=== PATIENT | female | born 1985 ===

== ENCOUNTER 2018-06-09 03:25 | Inpatient (IN) | payer BC ==
[~2018-06-09] VITALS: Ht 162.6 cm; Wt 87.7 kg
[2018-06-09] MEDS ORDERED: LABE20TAB PO (04:06)
[2018-06-09 04:07] VITALS: BP 129/84
[2018-06-09] MEDS ORDERED: ASPI81TA85 PO (04:12)
[2018-06-09] MEDS ORDERED: PRENTAB9 PO (04:12)
[2018-06-09 06:48] VITALS: BP 117/64
[2018-06-09] MEDS ORDERED: miSOPROStol 50 MCG 1/2 TAB (S0191) PO ONE (09:15)
[2018-06-09] MEDS ORDERED: VANCOMYCIN HCL 1,000 MG, VIAL MATE ADAPTER 1 EACH in D5W 250 ML IV SCH (09:30)
--- NOTE | 2018-06-09 11:26 | HPEPDOC ---
Obstetrical History & Physical General Date of Admission Jun 09, 2018 at 09:10 Primary Care Physician: MANPREET HAGEN CNM History of Present Illness Patient is a 33 y/o female with a MARCELINO of 07/08/18 measured by LMP who was transferred from [facility] on 06/08 at 35 weeks and 4 days with ruptured membranes. Patient states that she had a kerr of clear fluid from the vagina at 6:00 pm on 06/08, without contractions. She had a positive Amniosure and an ultrasound showing no identifiable amniotic fluid. This has been complicated by chronic hypertension, well controlled with labetalol 200 mg twice/day, and gestational diabetes well controlled with diet. Patient reports active baby movement and occasional contractions, and denies bleeding. She is GBS status unknown, not checked prior to administration of Vancomycin. Also taking Aspirin for history of pre-eclampsia. Chief Complaint: Rupture of membranes (6 pm 06/08/18) Information Provided By: Patient Age: 33 : 3 Term: 1 Pre-term: 0 Abortions: 1 Livin Care Care: Good Care Number of Visits: 8 Dating Final EDC: Jul 08, 2018 Final EDC by: LMP LMP: October 02, 2017 EGA at Admission: 35.4 Antepartum Course Diagnos(e)s Chronic HTN, PPROM, gestational diabetes, hx of pre-eclampsia Height (inches): 63.5 Pre- weight (lbs.): 177.8 Admission Weight (lbs.): 193.75 Change in Weight (lbs.): 16 Past Medical History Past Obstetrical History #1: Past Obstetrical History: Primgravida Date of Delivery: Aug 24, 2013 Gestation: 39 Type of Delivery: Spontaneous Vaginal Del. 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 Surgical History: Dilatation and Curettage (03/21/17), Other (Stomach malrotation surgery at 6 weeks old) Family History Significant Family History: Diabetes (Mother), Hypertension, Hyperlipidemia Social History Marital Status: Single Family situation: Spouse/partner home Psychosocial History: No pertinent psych hx * Smoker: non-smoker Alcohol: rarely Drugs: denies Imunizations Tdap status: current Influenza Status: current Allergies Coded Allergies: Penicillins (Verified Allergy, Unknown, 06/09/18) Sulfa Antibiotics (Verified Allergy, Unknown, 06/09/18) Trimethoprim (Verified Allergy, Unknown, 06/09/18) Medications Scheduled Aspirin (Aspir-81) 81 Mg Tab, 1 TAB PO DAILY for pain Labetalol HCl (Labetalol HCl) 200 Mg Tab, 200 MG PO BID Multivitamins/ ( 27-0.8 mg) 1 Tab Tab, 1 TAB PO DAILY Physical Examination Physical Examination GENERAL: Alert and oriented times three. BREAST: . ABDOMEN: Gravid and non-tender to touch. FETUS: Is vertex (VTX) by sterile vaginal examination (SVE), fetus is vertex (VTX) by Maximino. HEART RATE: Regular rate and rhythm. LUNGS: Clear to auscultation (CTA). EXTREMITIES: No edema. Deep tendon reflexes (DTRs) + [2]. Vital Signs/I&O Vital Signs Date Time Temp Pulse Resp B/P (MAP) Pulse Ox O2 Delivery O2 Flow Rate FiO2 06/09/18 06:48 65 16 117/64 (81) 06/09/18 04:07 97.7 Laboratory Data 24H LABS Laboratory Tests 2 06/09/18 07:48: Bedside Glucose (Misc Panel) 113H Pertinent Laboratoy Data Blood Type: A+ RBC Antibody Screen: Negative HIV: Negative Hepatitis B: Negative Rapid Plasma Reagin: Nonreactive Rubella: Immune Varicella: Immune Chlamydia/Gonorrhea: Negative Group B Streptococcus: Unknown Quad Screen Test: Negative Glucose Tolerance Test: 187 Anatomy Ultrasound Normal Anatomy: Yes Placenta Previa: No Other Ultrasounds 05/15/18 SLF/VX/324/1988g LONNY 12.8 Steroid Therapy Steroid Therapy: Yes Date #1: Jun 08, 2018 (2145) Reason PPROM Vaginal Examination Dilation: 2cm Effacement: 70% Station: -2 Cervical Consistency: Soft Cervical Position: Anterior Presentation: Cephalic presentation Position: Vertex (occiput) Assessment Heart Rate (FHR): 135 Variability: Moderate Accelerations: Positive Decelerations: None Tocometer Contractions: Yes Frequency: irregular Duration: other (60-120) Multi-drug resistant Organism: No history of MDRO Assessment/Plan Assessment IUP at 35.5 weeks PPROM A1GDM Chronic HTN controlled with labetalol GBS unknown Plan Admit to labor and delivery [employer] External and consent Diet: regular Group B Streptococcus (GBS) unknown Treated with Vancomycin Labs and intravenous (IV) per unit protocol Counseled on Pitocin and induction of labor (IOL) Anticipate normal spontaneous delivery () C-S as appropriate JESSICA OCAMPO S-III Jun 09, 2018 10:58
[2018-06-09 13:29] LABS: HEMATOCRIT 35.7 % (36.0-47.0); HEMOGLOBIN 11.9 g/dl (12.0-15.5); MEAN CORPUSCULAR HEMOGLOBIN 28.7 pg (27.0-33.0); MEAN CORPUSCULAR HGB CONC 33.3 g/dl (32.0-36.5); MEAN CORPUSCULAR VOLUME 86.2 fl (80.0-96.0); PLATELET COUNT, AUTOMATED 233 10^3/uL (150-450); RED BLOOD COUNT 4.14 10^6/uL (4.00-5.40); WHITE BLOOD COUNT 9.1 10^3/uL (4.0-10.0)
[2018-06-09] MEDS ORDERED: LR 1,000 ML IV SCH (13:45)
[2018-06-09] MEDS ORDERED: OXYTOCIN DRIP 30 UNITS in APPROPRIATE DILUENT 1 EA IV SCH (13:45)
[2018-06-09] MEDS ORDERED: OXYTOCIN 30 UNITS IN 0.9% NaCl 500ML IV BAG (J2590) As Ordered ONE (13:48)
[2018-06-09] MEDS ORDERED: FENTANYL 2MCG/ML ROPIVACAINE 0.2% IN 0.9% NACL 100ML IVBAG As Ordered ONE (16:22)
--- NOTE | 2018-06-09 16:31 | IPNPDOC ---
Text Note Date of Service The patient was seen on 06/09/18. NOTE Subjective: Entered room to check patient for cervical progression, patient c omplaining of lower back pain with contractions. Desires epidural anesthesia moving forward prior to her next cervical check. Objective: FHR in 130's with moderate variability and no decelerations with contractions every 1-3 minutes apart. Category 1 FHR tracing. Mothers vital signs: HR:57, BP:178/82 Assessment/plan 33 y/o female at 35-6/7 with PPROM here for induction of labor. - Call anesthesia for epidural placement - Cervical check - Continue with FHR monitoring. - Continue monitoring BP, elevation is likely secondary to pain. - Continued anticipation of normal spontaneous vaginal delivery Update: baby progressed to full cervical dilation and was ultimately delivered prior to epidural. Provider was at bedside providing labor support throughout this time. VS,Fishbone, I+O VS, Fishbone, I+O Laboratory Tests 06/09/18 13:10 Red Blood Count 4.14, Mean Corpuscular Volume 86.2, Mean Corpuscular Hemoglobin 28.7, Mean Corpuscular Hemoglobin Concent 33.3, Red Cell Distribution Width 13.2 Vital Signs Date Time Temp Pulse Resp B/P (MAP) Pulse Ox O2 Delivery O2 Flow Rate FiO2 06/09/18 06:48 65 16 117/64 (81) 06/09/18 04:07 97.7 GME ATTESTATION GME ATTESTATION My faculty preceptor for this patient encounter was physically present during the encounter and was fully available. All aspects of the patient interview, examination, medical decision making process, and medical care plan development were reviewed and approved by the faculty preceptor. The faculty preceptor is aware and concurs with the plan as stated in the body of this note and will attest to such by his/her cosignature. BLAIR COTTER DO Jun 09, 2018 16:31
--- NOTE | 2018-06-09 17:19 | DNPDOC ---
[facility] Delivery Note Delivery Note DATE OF DELIVERY: 06/09/2018 PREDELIVERY DIAGNOSIS: 35 weeks, 6 days gestation. POSTDELIVERY DIAGNOSIS: Delivered PROCEDURE: Spontaneous vaginal delivery PROVIDER: Blair Deal DO PGY-I TOOL MAKER: Danielle Collins CNM ANESTHESIA: none. ESTIMATED BLOOD LOSS: 200 mL. FINDINGS: Male infant weighing 5 pounds 7 ounces or 2490 grams, scores 7 and 9. DELIVERY SUMMARY: After a short second stage, the patient spontaneously delivered a 5 pound 7 ounce male , weighing 2490 grams at 1637 hours. The infant delivered OA--> Right occipital transverse, and there was one nuchal times one. The shoulders delivered with ease, followed by the corpus. The cried spontaneously and was handed to the mother. scores were 7 and 9. The cord was doubly clamped and cut by the father of the baby. The placenta was delivered spontaneously at 1645 hours and appeared to be intact. The patient received 10 units of IM pitocin in Right thigh immediately after delivery of the placenta. Patient had 1st degree laceration at the base of the perineum that did not require repair. Sponge counts were correct. The parents have not named their baby yet. GME ATTESTATION GME ATTESTATION My faculty preceptor for this patient encounter was physically present during the encounter and was fully available. All aspects of the patient interview, examination, medical decision making process, and medical care plan development were reviewed and approved by the faculty preceptor. The faculty preceptor is aware and concurs with the plan as stated in the body of this note and will attest to such by his/her cosignature. BLAIR DEAL DO Jun 09, 2018 17:19
[2018-06-09] MEDS ORDERED: FENTANYL/ROPIVACAINE/NACL BAG 100 ML EPIDURAL SCH (18:00)
[2018-06-09] MEDS ORDERED: REFRIGERATOR IV KEYS XX PRN (18:00)
[2018-06-09] MEDS ORDERED: METHYLERGONOVINE MALEATE 0.2 MG TAB PO PRN (19:00)
[2018-06-09] MEDS ORDERED: RHOGAM 300 MCG (1500 IU) INJ (J2790) IM SCH (19:00)
[2018-06-09] MEDS ORDERED: OXYTOCIN INJ 10 UNITS/ML VIAL (J2590) IM ONE (19:00)
[2018-06-09] MEDS ORDERED: DIBUCAINE 1% OINTMENT 30GM TOP PRN (19:00)
[2018-06-09] MEDS ORDERED: MEASLES,MUMPS,RUBELLA VACCINE INJ (MMR-II) (90707) SC SCH (19:00)
[2018-06-09] MEDS ORDERED: ANUSOL HC CREAM 30GM TOP PRN (19:00)
[2018-06-09] MEDS: ACETAMINOPHEN 500 MG TAB PO PRN (21:28)
[2018-06-09 22:00] VITALS: BP 116/65
[2018-06-09] MEDS ORDERED: IBUPROFEN 800 MG TAB PO PRN (23:30)
[2018-06-10] MEDS: PRENATAL VITAMINS CHEWABLE TABLET PO SCH (07:50)
[2018-06-10] MEDS: ACETAMINOPHEN 500 MG TAB PO PRN (07:50)
[2018-06-10] MEDS: DOCUSATE SODIUM 100 MG CAP PO PRN (07:50)
[2018-06-10 10:00] VITALS: BP 127/78
[2018-06-10 14:00] VITALS: BP 135/70
[2018-06-10 18:34] VITALS: BP 117/70
[2018-06-10 22:00] VITALS: BP 123/58
[2018-06-11 02:00] VITALS: BP 117/72
--- NOTE | 2018-06-11 06:05 | NUR ---
Day 2 Status post , uncomplicated Subjective Pain is well controlled. Lochia decreasing and minimal. Voiding spontaneously. Tolerating a regular diet. Ambulating without any assistance. Denies any subjective fever/chills/nausea/vomiting/headache/visual changes/shortness of breath/chest pain. Objective Vitals: Normotensive, normal heart rate, afebrile, adequate urine output. Heart: regular, rate, and rhythm. no murmurs/gallops/rubs Lungs: clear to auscultation bilaterally, no wheezes/crackles/rales/ronchi Abd: soft, nontender, nondistended, uterine fundus is 2cm below umbilicus and firm Ext: no significant edema, nontender, negative Sarah Beth's bilaterally. Assessment/Plan: day 2. Recovering well. Hemodynamically stable, afebrile, good pain control. -Routine care -Discharge to home today. -Routine infectious, fever, pain, and bleeding precautions reviewed Bea Han.Cristhian., F.A.C.O.G.
[2018-06-11 06:57] VITALS: BP 131/73
[2018-06-11] MEDS ORDERED: MAPA500T2 PO (08:42)
[2018-06-11] MEDS ORDERED: IBUP-1114 PO (08:42)
[2018-06-11] MEDS: DOCUSATE SODIUM 100 MG CAP PO PRN (09:19)
[2018-06-11] MEDS: PRENATAL VITAMINS CHEWABLE TABLET PO SCH (09:19)
== END 2018-06-11 09:37 | disposition home or self-care (01) | DRG 560 ==
LOC: M LDO 03:25 → M LDI 09:10 → M OBS 19:57
PROVIDERS: ADMIT Advanced Practice Midwife; ATTEND Obstetrics & Gynecology
PROC: 10E0XZZ Delivery of Products of Conception, External Approach (ICD-10-PCS; principal; 2018-06-09)
PROC: 0HQ9XZZ Repair Perineum Skin, External Approach (ICD-10-PCS; 2018-06-09)
DX: O24.420 Gestational diabetes mellitus in childbirth, diet controlled (principal); Z37.0 Single live birth; O10.92 Unspecified pre-existing hypertension complicating childbirth; Z3A.35 35 weeks gestation of pregnancy; Z88.0 Allergy status to penicillin; Z88.2 Allergy status to sulfonamides; Z88.8 Allergy status to other drugs, medicaments and biological substances; Z79.899 Other long term (current) drug therapy; O69.82X0 Labor and delivery complicated by other cord entanglement, without compression, not applicable or unspecified; O70.0 First degree perineal laceration during delivery; O60.14X0 Preterm labor third trimester with preterm delivery third trimester, not applicable or unspecified; O42.013 Preterm premature rupture of membranes, onset of labor within 24 hours of rupture, third trimester